=== PATIENT | male | born 1940 | race Caucasian/White ===

== ENCOUNTER 2016-10-13 23:13 | Inpatient (IN) | payer OTHER ==
[~2016-10-13] VITALS: Ht 175.3 cm; Wt 86.2 kg
[~2016-10-13 23:13] MED LIST: ALLOPURINOL100 MG PO; ASPIR 8181 MG PO; ASPIR-TRIN325 MG PO; ASPIRIN EC325 M2; ASPIRIN EC325 MG PO; ATORVASTATIN CA40 MG PO; ATORVASTATIN CA80 M1 PO; CELEXA20 M1 PO; GABAPENTIN300 M2 PO; HYDRALAZINE HCL50 MG PO; LEVOTHYROXIN0.025 M1 PO; LISINOPRIL/HCTZ1 TAB PO; MAGNESIUM250 M1 PO; MASON NATURAL2000 IU PO; OXACILLIN2 G1 IV; PLAVIX75 M1 PO; RESTASIS 0.4 M0.4 ML OPH; SENNA SOFT15 MG PO; Senokot S PO; TEMOVATE TOP; VITAMIN B121000 MC2 PO
--- NOTE | 2016-10-14 15:33 | RADIOLOGY REPORT ---
EXAMINATION: XR PORTABLE CHEST CLINICAL INFORMATION: Pacemaker placement. COMPARISON: 10/12/2016 TECHNIQUE: Portable AP view of the chest was obtained. FINDINGS: There is a left chest wall dual-lead pacer with leads overlying the right atrium and right ventricle. The lungs are well expanded. Similar tenting of the right hemidiaphragm with linear basilar scarring. No pleural effusion. No pneumothorax. The cardiomediastinal silhouette is unchanged. IMPRESSION: Left chest wall pacer in place with leads overlying the right atrium and right ventricle. No pneumothorax. Unchanged appearance of the right lung base.
--- NOTE | 2016-10-14 15:44 | Admission Core Measures ---
Admission Meds I reviewed the following Meds: Current Medications Sig/Hina Start time Last Medication Dose Stop Time Status Admin Aspirin Buffered 325 MG DAILY 10/15 1000 UNVr (Ecotrin) Atorvastatin Calcium 80 MG 1700 10/14 1700 UNVr (Lipitor) Citalopram 20 MG DAILY 10/15 1000 UNVr Hydrobromide (Celexa) Clopidogrel Bisulfate 75 MG DAILY 10/15 1000 UNVr (Plavix) Gabapentin 300 MG .[NIGHTLY] 10/14 1530 UNVr (Neurontin) Levothyroxine Sodium 0.025 MG DAILY AC 10/15 0700 UNVr (Synthroid) Senna/Docusate Sodium 1 TAB QPM 10/14 2200 UNVr (Senokot S) Acute Coronary Syndrome Inclusion Criteria ACS Diagnosis No Inpatient Core Measures LDL Reminder: If No, please order W/I first 24hr of stay Congestive Heart Failure Inclusion Criteria CHF Diagnosis No Cerebrovascular accident Inclusion Criteria CVA/TIA Diagnosis No Inpatient Core Measures Bedside Swallow Eval Reminder: If BSE failed, place ST order Antithrombotic Reminder: Order Antithrombotic Medication by end of day 2 Antithrombotic Reminder: Document Reason Antithrombotic Not ordered by end of day 2 AFIB/Flutter Reminder: If Present, add to problem list AFIB/Flutter Reminder: Order Anticoag Medication for pts with AFIB/Flutter Atherosclerosis Reminder: If Present, add to problem list LDL Reminder: If No, please order W/I first 24hr of stay PT Order Reminder: If No, please order Venous thromboembolism Inpatient Core Measures VTE Risk Factors: Age > 40, Surgery No [facility] VTE prophylaxis d/t No contraindications No VTE Pharm Prophylaxis d/t No contraindications Inclusion Criteria - Per Current guidelines, there needs to be overlap - treatment for the first 5 days of Warfarin therapy. - Parenteral Anticoagulation (IV or SC) needs to be - given along with Warfarin therapy. VTE Diagnosis No VTE Type NONE VTE Confirmed by (Test) NONE Problem List As ranked by this Provider includes Assessment & Plan 1. Bradycardia HOME MEDS Home Med List Aspirin E.c. (Ecotrin) 325 MG TAB 1 TAB PO DAILY HEART HEALTH (Reported) Atorvastatin Calcium 80 MG TABLET 80 MG PO 1700 hyperlipidemia CHOLECALCIFEROL (VITAMIN D3) (Vitamin D) 2,000 UNIT CAPSULE 1 CAP PO DAILY SUPPLEMENT (Reported) Citalopram Hydrobromide (Celexa) 20 MG TABLET 1 TAB PO DAILY ANXIETY / DEPRESSION (Reported) Clopidogrel Bisulfate (Plavix) 75 MG TABLET 75 MG PO DAILY TIA Cyanocobalamin (Vitamin B12) 1,000 MCG TAB 1 TAB PO DAILY SUPPLEMENT ( Reported) Cyclosporine (Restasis 0.4 Ml) 0.05 % DROPERETTE 1 GTT OPH BID EYE DRYNESS ( Reported) Gabapentin 300 MG CAPSULE 1 TAB PO NIGHTLY SLEEP (Reported) Levothyroxine Sodium 0.025 MG TAB 0.025 MG PO DAILY AC THYROID Magnesium 250 MG TABLET 250 MG PO DAILY SUPPLEMENT (Reported) Sennosides (Senna Soft) 15 MG TAB 1 TAB PO QPM PRN CONSTIPATION (Reported)
--- NOTE | 2016-10-14 16:44 | Operative Report ---
Operative/Inv Procedure Report Surgery Date: 10/14/16 Name of Procedure: MRI compatible dual-chamber pacemaker Pre-Operative Diagnosis: Symptomatic bradycardia with sick sinus syndrome Post-Operative Diagnosis: Same Estimated Blood Loss: less than 50ml Surgeon/Cap Inspector: ABIMAEL VIDAL,TAMIKO Rodriguez JR Anesthesia: laryngeal mask airway Operative/Procedure Note Note: After placement of monitoring lines and induction of a laryngeal mask airway general anesthetic the patient's left shoulder and upper chest were prepped and draped in a sterile fashion. Incision was made in the deltopectoral groove and carried down to prepectoralis fascia. The cephalic vein was encircled and was found to be a large caliber vessel. A small venotomy was made and a guidewire was passed into the right atrium under fluoroscopic guidance. A Medtronic ventricular lead model #[id number] was then advanced into the pulmonary outflow tract under fluoroscopic guidance. It was withdrawn into the right ventricular chamber and positioned at the apex. R waves were measured at 9.8 mV and the pacing threshold was at 0.3 V with a current of 0.2 mA and an impedance of 1151 ohms. The sheath dilator was then passed over the retained guidewire. A Medtronic preformed atrial lead model #[id number] was then positioned in the right atrial appendage under fluoroscopic guidance. P waves were measured at 2.1 mV. The pacing threshold was 0.4 V with a current of 0.6 mA and impedance of 507 ohms. The leads were tied to the cephalic vein which was occluded. There were then secured to the prepectoralis fascia with Ethibond sutures. A pacemaker pocket was fashioned over the prepectoralis fascia. The leads were then attached to a an MRI compatible Medtronic dual-chamber pacemaker. Hemostasis was achieved with electrocautery and with surgical clips. The pocket was flushed with antibiotic irrigation. The wound was closed in layers deep Vicryl suture followed by running followed by a running Vicryl subcuticular suture. With the dressing in place the pacemaker was interrogated and it was found that the atrial lead was not capturing appropriately. Fluoroscopy showed that the lead appeared to be in the same position but given the now high pacing threshold a decision was made to reopen the wound. The patient was reprepped and draped. The incision was opened and the atrial lead was then repositioned. The pacing threshold was now 0.4 V with a current of 0.7 mA and an impedance of 494 ohms. The ventricular lead was retested and this was working fine. The leads were reconnected to the generator and the wound was closed once again with Vicryl sutures. It was dressed with a dry sterile dressing. It was re-interrogated and found to be continuing functioning well. The patient tolerated the procedure well and was brought to the recovery room awake and extubated in stable condition. CC: Vandana BRUNSON MD
[2016-10-14 17:15] VITALS: BP 178/68
[2016-10-14 17:26] VITALS: BP 178/68
[2016-10-14 19:00] VITALS: BP 150/70
--- NOTE | 2016-10-14 20:00 | PN- Thoracic Surgery ---
Subjective Subjective: The patient was seen this evening postoperatively. He reports that his pain is under adequate control and is no complaints at the current time. He denies any chest pain or difficulty breathing. Objective Vital Signs and I&Os Vital Signs Date Time Temp Pulse Resp B/P Pulse O2 O2 Flow FiO2 Ox Delivery Rate / 1900 97.3 61 24 150/70 100 Room Air 03/ 1726 97.3 60 24 178/68 100 Room Air 03/ 1715 97.3 60 24 178/68 100 Room Air Postoperative chest x-ray showing pacemaker leads in good position with no pneumothorax. Postoperative EKG showing a paced sinus rhythm Physical Exam: Gen.: Alert and in obvious distress Skin: Warm and dry Chest: Left chest with surgical dressing that is clean, dry, and intact. Cardiac: S1-S2 regular Pulmonary: Bilateral breath sounds are equal with good exchange and fine expiratory wheeze Extremities: Left upper extremity in sling, gross motor and sensory are intact and there is a strong palpable radial pulse. Bilateral lower extremities are warm without calf tenderness. Assessment/Plan Assessment/Plan Assessment: 76-year-old male status post permanent pacemaker placement. Postoperatively patient is progressing as expected and his pain is under adequate control. Plan: Hep-Lock IV fluids advance diet as tolerated Continue to monitor on telemetry until the morning Keep the pressure dressing and left upper extremity in sling Resume home medications GI and DVT prophylaxis Possible discharge home tomorrow if doing okay. Core Measures/Miscellaneous Venous Thromboembolism VTE Risk Factors: Cancer/chemo/oth therapy, Surgery VTE Contraindications: No Contraindications VTE Diagnosis: No VTE Type: NONE VTE Confirmed by (Test): NONE Beta Earl Is Beta Ealr a Home Med? No Antibiotics Is Patient on Antibiotics? No
[2016-10-14 21:30] VITALS: BP 168/70
--- NOTE | 2016-10-14 22:15 | NUR ---
1700 LATE NURSING ENTRY: PATIENT RECEIVED FROM PACU, ALERT AND ORIENTED, TRANSFERED TO BED, TM IN PLACE READING HR 60, PACED, VS DOCUMENTED, PATIENT DENIES PAIN. LCW AND SHOULDER DRSG, DRY, INTACT AND CLEAN . ARM IN SLING. PATIENT ORIENTED TO ROOM AND 1 NORTH, CALL GUZMAN EXPLAINED AND GIVEN. DIETARY AT BED SIDE. WCTM.
--- NOTE | 2016-10-14 22:18 | NUR ---
2200 PATIENT DID NOT VOID SINCE ADMISSION TO FLOOR AT 1700. BLADDER SCANNED FOR 540 ML, PATIENT STATING "I DON'T FEEL LIKE I NEED TO PEE RIGHT NOW" URINAL PROVIDED AND PATIENT VOIDED 300 MC CLEAR DARK MARIO URINE. WCTM.
[2016-10-15 04:00] VITALS: BP 148/70
--- NOTE | 2016-10-15 07:43 | PN- Thoracic Surgery ---
Subjective Subjective: No complaints. Denies pain. Reports difficulty getting out of bed yesterday. Tolerating diet. No nausea. Denies shortness of breath. No chest pains. No dizziness. Objective Vital Signs and I&Os Vital Signs Date Time Temp Pulse Resp B/P Pulse O2 O2 Flow FiO2 Ox Delivery Rate 10/15 0400 60 148/70 03/ 0000 94 Room Air 10/14 2130 98.1 60 22 168/70 98 Room Air 10/14 1900 97.3 61 24 150/70 100 Room Air 10/14 1726 97.3 60 24 178/68 100 Room Air / 1715 97.3 60 24 178/68 100 Room Air Intake & Output 10/15 0800 10/15 0000 / 1600 10/14 0800 10/14 0000 10/13 1600 Intake Total 50 850 Output Total 300 300 Balance -250 550 Intake, IV 50 100 Intake, Oral 0 750 Number 0 Bowel Movements Output, Urine 300 300 Patient 190 lb Weight Assessment/Plan Assessment/Plan This 76-year-old male is POD#1 s/p permanent pacemaker placement for symptomatic bradycardia with sick sinus syndrome tolerating diet. off iv fluids f/u labs post-op cxr and ekg done / reviewed percocet prn pain hep sc - dvt ppx clara-operative ancef complete PT eval to assess safety for home f/u and likely d/c home today Core Measures/Miscellaneous Venous Thromboembolism VTE Risk Factors: Cancer/chemo/oth therapy, Surgery VTE Contraindications: No Contraindications VTE Diagnosis: No VTE Type: NONE VTE Confirmed by (Test): NONE Beta Earl Is Beta Earl a Home Med? No Antibiotics Is Patient on Antibiotics? No
--- NOTE | 2016-10-15 07:49 | RADIOLOGY REPORT ---
EXAMINATION: FL PACEMAKER INSERTION IN OPERATING ROOM CLINICAL INFORMATION: Pacemaker insertion. COMPARISON: None. TECHNIQUE: Fluoroscopy was provided in the operating room. 4 spot views were obtained of the lower mediastinum. FINDINGS: The spot films demonstrate right atrial and right ventricular leads. FLUOROSCOPY TIME: 7 minutes. DOSE: 83.2 mGy; 2.7 mGym2. IMPRESSION: Fluoroscopy provided for pacemaker insertion.
--- NOTE | 2016-10-15 07:49 | Patient Discharge Instructions ---
Discharge Instructions General Discharge Information You were seen/treated for: Symptomatic bradycardia with sick sinus syndrome You had these procedures: Surgery Date: 10/14/16 Name of Procedure: MRI compatible dual-chamber pacemaker Watch for these problems: fever>101.3, increased pain, shortness of breath, chest pain, dizziness Special Instructions: sling to limit movement of left arm Diet Continue normal diet: Yes Recommended Diet: Heart Healthy Activity Full Activity/No Limits: No Activity Self Limited: Yes Pounds, do NOT lift more than: 10 Acute Coronary Syndrome Inclusion Criteria At DC or during hospital stay patient has or had the following: ACS DIAGNOSIS No Discharge Core Measures Meds if any: Prescribed or Continued at Discharge Meds if any: NOT Prescribed or Continued at Discharge Congestive Heart Failure Inclusion Criteria At DC or during hospital stay patient has or had the following: CHF DIAGNOSIS No Discharge Core Measures Meds if any: Prescribed or Continued at Discharge Meds if any: NOT Prescribed or Continued at Discharge Cerebrovascular accident Inclusion Criteria At DC or during hospital stay patient has or had the following: CVA/TIA Diagnosis No Discharge Core Measures Meds if any: Prescribed or Continued at Discharge Meds if any: NOT Prescribed or Continued at Discharge Venous thromboembolism Inclusion Criteria VTE Diagnosis No VTE Type NONE VTE Confirmed by (Test) NONE Discharge Core Measures - Per Current guidelines, there needs to be overlap - treatment for the first 5 days of Warfarin therapy. - If discharged on Warfarin prior to 5 days of - overlap therapy, the patient will need to be - assessed for post discharge needs including - *Post discharge parental anticoagulation - *Warfarin and/or parental anticoagulation education - *Follow up date to check INR post discharge At least 5 days overlap therapy as Inpatient No Meds if any: Prescribed or Continued at Discharge Note: Overlap Therapy is Warfarin and Anticoagulant Meds if any: NOT Prescribed or Continued at Discharge
[2016-10-15 07:52] VITALS: BP 142/72
[2016-10-15 08:25] LABS: ABSOLUTE BASOPHIL COUNT 0 /CUMM (0.0-0.2); ABSOLUTE LYMPH COUNT 0.9 /CUMM (1.2-3.4)
[2016-10-15 09:00] LABS: ABSOLUTE EOSINOPHIL COUNT 0.3 /CUMM (0.0-0.7); ABSOLUTE MONOCYTE COUNT 0.6 /CUMM (0.10-0.60); BASOPHIL % 0.3 % (0.0-2.0); EOSINOPHIL % 4.3 % (0-5); GRANULOCYTE % 76.4 % (42.2-75.2); MEAN CORPUSCULAR HGB 33.4 PG (27.0-31.0); MEAN PLATELET VOLUME 8.4 FL (7.4-10.4); PLATELET COUNT 130 /CUMM (130-400); RBC DISTRIBUTION WIDTH 15.1 % (11.5-14.5); RED BLOOD CELL CT 3.04 /CUMM (4.70-6.10); WHITE BLOOD CELL COUNT 7.8 /CUMM (4.8-10.8)
[2016-10-15 09:03] LABS: HEMATOCRIT 29.8 % (42-52)
--- NOTE | 2016-10-15 10:32 | Cons- Cardiology ---
General Information and HPI Consulting Request Date of Consult: 10/15/16 Requested By: ABIMAEL VIDAL,TAMIKO Rodriguez JR Reason for Consult: Cardiac management post permanent pacemaker Source of Information: patient, old records Exam Limitations: no limitations History of Present Illness: The patient is a 76-year-old male who is well-known to me. The patient has a long medical history with multiple problems. He has been relatively stable recently but has complained of persistent fatigue, episodes of mental status changes have been noted, and one recently in the hospital, the patient had persistent sinus bradycardia on no medications. When seen recently by me in the office, the patient continued to have persistent episodes of bradycardia. His Holter monitor showed daytime heart rates as low as sinus bradycardia in the high 20s to low 30s. His average heart rate was also significantly low. In view of the patient's persistent fatigue and other symptoms he was recommended to have a permanent pacemaker implanted. The patient is now day one post dual- chamber permanent pacemaker inserted by Dr. Simms and is clinically stable. His pacemaker appears to be functioning normally. The patient feels much better with more energy and less fatigue. Allergies/Medications Allergies: Coded Allergies: NO KNOWN ALLERGIES (10/12/16) Home Med List: Aspirin E.c. (Ecotrin) 325 MG TAB 1 TAB PO DAILY HEART HEALTH (Reported) Atorvastatin Calcium 80 MG TABLET 80 MG PO 1700 hyperlipidemia CHOLECALCIFEROL (VITAMIN D3) (Vitamin D) 2,000 UNIT CAPSULE 1 CAP PO DAILY SUPPLEMENT (Reported) Citalopram Hydrobromide (Celexa) 20 MG TABLET 1 TAB PO DAILY ANXIETY / DEPRESSION (Reported) Clopidogrel Bisulfate (Plavix) 75 MG TABLET 75 MG PO DAILY TIA Cyanocobalamin (Vitamin B12) 1,000 MCG TAB 1 TAB PO DAILY SUPPLEMENT ( Reported) NPO Cyclosporine (Restasis 0.4 Ml) 0.05 % DROPERETTE 1 GTT OPH BID EYE DRYNESS ( Reported) Gabapentin 300 MG CAPSULE 1 TAB PO NIGHTLY SLEEP (Reported) Levothyroxine Sodium 0.025 MG TAB 0.025 MG PO DAILY AC THYROID Magnesium 250 MG TABLET 250 MG PO DAILY SUPPLEMENT (Reported) Sennosides (Senna Soft) 15 MG TAB 1 TAB PO QPM PRN CONSTIPATION (Reported) Current Medications: Current Medications Sig/Hina Start time Last Medication Dose Route Stop Time Status Admin Acetaminophen 650 MG Q6P PRN 10/14 1730 AC PO Aspirin Buffered 325 MG DAILY 10/15 1000 DC PO Aspirin Buffered 325 MG DAILY 10/15 1000 AC 10/15 PO 0947 Atorvastatin Calcium 80 MG 1700 10/15 1700 AC PO Atorvastatin Calcium 80 MG 1700 10/14 1700 DC PO Cefazolin Sodium 2 GM Q8H 10/14 2000 DC 10/15 N/A 1 UNIT IV 10/15 0429 0445 Citalopram 20 MG DAILY 10/15 1000 DC Hydrobromide PO Citalopram 20 MG DAILY 10/15 1000 AC 10/15 Hydrobromide PO 0947 Clopidogrel Bisulfate 75 MG DAILY 10/15 1000 DC PO Clopidogrel Bisulfate 75 MG DAILY 10/15 1000 AC 10/15 PO 0947 Dextrose/Sodium 1,000 ML .[id number] 10/14 1730 DC Chloride IV Docusate Sodium 100 MG DAILY NEEDED PRN 10/14 1730 AC PO Fentanyl Citrate 100 MCG .STK-MED ONE 10/14 1149 DC IM 10/14 1150 Gabapentin 300 MG QPM 10/14 2200 DC PO Gabapentin 300 MG QPM 10/14 2200 AC 10/14 PO 2108 Heparin Sodium 5,000 UNIT Q8 10/15 0745 AC 10/15 (Porcine) SC 0947 Labetalol HCl 100 MG .STK-MED ONE 10/14 1548 DC IV 10/14 1549 Levothyroxine Sodium 0.025 MG DAILY AC 10/15 0700 DC PO Levothyroxine Sodium 0.025 MG DAILY AC 10/15 0700 AC 10/15 PO 0633 Midazolam HCl 2 MG .STK-MED ONE 10/14 1149 DC IM 10/14 1150 Morphine Sulfate 2 MG Q2P PRN 10/14 1730 AC IV Oxycodone/ 1 TAB Q4P PRN 10/14 1730 AC Acetaminophen PO Oxycodone/ 2 TAB Q4P PRN 10/14 1730 AC Acetaminophen PO Senna/Docusate Sodium 1 TAB QPM 10/14 2200 DC PO Senna/Docusate Sodium 1 TAB QPM 10/14 2200 AC PO Past History Medical History Blood Transfusion Hx: Yes Neurological: TIA EENT: cataracts Cardiovascular: aortic stenosis, hypertension, rheumatic fever Respiratory: PARTIAL RIGHT LOBECTOMY Gastrointestinal: NONE Hepatic: NONE Renal: NONE Musculoskeletal: gout Psychiatric: NONE Endocrine: hypothyroidism, vitamin B12 deficiency Blood Disorders: anemia Cancer(s): lung cancer (metastatic) TRANSIT MAN/Reproductive: NONE Other Medical Hx: psoriasis Surgical History Surgical History: laminectomy (L3 to L5 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 BROTHER (family history of multiple cancers-lung, stomach, pancreas in parents andsiblings.). Psychosocial History Where Do You Live? Home Services at Home: None Smoking Status: Never Smoked ECHO Results (as available) Report: CONCLUSIONS 1. There were no vegetative lesions detected on this examination. 2. Aortic sclerosis is present with minimal to mild aortic insufficiency. 3. Mitral leaflet thickening is present with mild to moderate mitral insufficiency and mild left atrial dilatation. 4. The left atrial appendage appears normal with no evidence of thrombus. 5. The pulmonary venous anatomy is normal bilaterally with normal doppler flow profiles. 6. The left ventricular chamber size and systolic function appear normal. 7. Mild dilatation of the right heart chambers is noted. Mild to moderate tricuspid insufficiency is present with an estimated RV systolic pressure of at least 50 mmHg. 8. A PFO is present with a small left to right shunt noted in the mid atrial septum. Agitated contrast studies were not performed due to the lack of adequate IV access ( the patient only had a PICC line). 9. Grade I atheromatous plaque is present in the distal aortic arch. Exam & Diagnostic Data Vital Signs and I&O Vital Signs Date Time Temp Pulse Resp B/P Pulse O2 O2 Flow FiO2 Ox Delivery Rate 10/15 0752 97.7 62 18 142/72 96 Room Air 10/15 0400 60 148/70 10/15 0000 94 Room Air 10/14 2130 98.1 60 22 168/70 98 Room Air 10/14 1900 97.3 61 24 150/70 100 Room Air 10/14 1726 97.3 60 24 178/68 100 Room Air 10/14 1715 97.3 60 24 178/68 100 Room Air Intake & Output 10/15 1600 10/15 0800 10/15 0000 10/14 1600 10/14 0800 10/14 0000 Intake Total 50 850 Output Total 300 300 Balance -250 550 Intake, IV 50 100 Intake, Oral 0 750 Number 0 Bowel Movements Output, Urine 300 300 Patient 190 lb Weight Physical Exam: WD, WN, WM; NAD; VSS; Alert and oriented HEENT: normal Nech: normal Chest: normal; clear bilaterally; surgical site clean and dry. Heart: S1; S2; 2/6 AVNI Abdomen: normal Ext: trace ankle edema Vascular: normal. Labs/Maximo Results: Laboratory Tests 10/15 0650 Chemistry Sodium (137 - 145 mmol/L) 139 Potassium (3.5 - 5.1 mmol/L) 4.2 Chloride (98 - 107 mmol/L) 107 Carbon Dioxide (22 - 30 mmol/L) 22 Anion Gap (5 - 16) 10 BUN (9 - 20 mg/dL) 16 Creatinine (0.7 - 1.2 mg/dL) 1.2 Estimated GFR (>60 ml/min) 59 L BUN/Creatinine Ratio (7 - 25 %) 13.3 Hematology CBC w Diff NO MAN DIFF REQ WBC (4.8 - 10.8 /CUMM) 7.8 RBC (4.70 - 6.10 /CUMM) 3.04 L Hgb (14.0 - 18.0 G/DL) 10.1 L Hct (42 - 52 %) 29.8 L MCV (80.0 - 94.0 FL) 98.0 H MCH (27.0 - 31.0 PG) 33.4 H RDW (11.5 - 14.5 %) 15.1 H Plt Count (130 - 400 /CUMM) 130 MPV (7.4 - 10.4 FL) 8.4 Gran % (42.2 - 75.2 %) 76.4 H Lymphocytes % (20.5 - 51.1 %) 11.5 L Monocytes % (1.7 - 9.3 %) 7.5 Eosinophils % (0 - 5 %) 4.3 Basophils % (0.0 - 2.0 %) 0.3 Absolute Granulocytes (1.4 - 6.5 /CUMM) 6.0 Absolute Lymphocytes (1.2 - 3.4 /CUMM) 0.9 L Absolute Monocytes (0.10 - 0.60 /CUMM) 0.6 Absolute Eosinophils (0.0 - 0.7 /CUMM) 0.3 Absolute Basophils (0.0 - 0.2 /CUMM) 0 PUBS MCHC (33.0 - 37.0 G/DL) 34.0 Diagnostic Data EKG Results atrial paced CXR Results FINDINGS: There is a left chest wall dual-lead pacer with leads overlying the right atrium and right ventricle. The lungs are well expanded. Similar tenting of the right hemidiaphragm with linear basilar scarring. No pleural effusion. No pneumothorax. The cardiomediastinal silhouette is unchanged. IMPRESSION: Left chest wall pacer in place with leads overlying the right atrium and right ventricle. No pneumothorax. Unchanged appearance of the right lung Assessment/Plan Assessment/Plan Assessment: 1. Persistent sinus bradycardia, symptomatic, now status post permanent pacemaker 2. History of hypertension 3. Aortic stenosis 4. History of lung cancer, status post lobectomy. Recommendations: -Out of bed as tolerated -Continue regular medications -Discharge planning as per cardiothoracic surgical service.-The patient will follow-up with me in the office in 2-4 weeks Consult Acknowledgment - Thank you for your consult request.
[2016-10-15] MEDS ORDERED: TYLENOL325 M1 PO (12:15)
--- NOTE | 2016-10-29 13:51 | Surgical Discharge Summary ---
Visit Information Visit Dates Admission Date: 10/14/16 Discharge Date: 10/15/16 History of Present Illness Chief Complaint: Patient is admitted for placement of a permanent pacemaker for symptomatic bradycardia. Holter monitor is shown significant pauses and bradycardia. Medical History Blood Transfusion Hx: Yes Neurological: TIA EENT: cataracts Cardiovascular: aortic stenosis, hypertension, rheumatic fever Respiratory: PARTIAL RIGHT LOBECTOMY Gastrointestinal: NONE Hepatic: NONE Renal: NONE Musculoskeletal: gout Psychiatric: NONE Endocrine: hypothyroidism, vitamin B12 deficiency Blood Disorders: anemia Cancer(s): lung cancer (metastatic) DRAFTING LAYOUT MAN/Reproductive: NONE Other Medical Hx: psoriasis History of MRSA: No History of VRE: No History of CDIFF: No Isolation History: Standard Pneumonia Vaccine: 07/15/14 Influenza Vaccine: 04/23/16 Surgical History Pertinent Surgical History: 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 BROTHER (family history of multiple cancers-lung, stomach, pancreas in parents andsiblings.). Psychosocial History Where Do You Live? Home Who Do You Live With? Patient/Self Services at Home: None What is Your Primary Language? Jamaican Review of Systems: Occasional presyncope and general lack of energy Hospital Course Course Attending Physician: ABIMAEL VIDAL,TAMIKO Rodriguez JR Primary Care Physician: KEMAR OROSCO MD Hospital Course: Patient was admitted and underwent placement of permanent pacemaker. It was a dual-chamber MRI compatible device. He was stable overnight on telemetry. On the morning of the first postoperative day his pacemaker was interrogated and was functioning well. He was discharged at that point. Allergies: Coded Allergies: NO KNOWN ALLERGIES (10/12/16) Disposition Summary Disposition Principal Diagnosis: Symptomatic bradycardia Additional Diagnosis: None Discharge Disposition: home or self care Discharge Instructions General Discharge Information Code Status: Full Code Patient's Diet: As tolerated usual Patient's Activity: No lifting with the left arm otherwise normal Follow-Up Instructions/Appts: Follow-up in 2 weeks in the office with pacemaker interrogation Medications at Discharge Discharge Medications: Continue taking these medications: Magnesium (Magnesium) 250 MG TABLET 250 Milligram ORAL DAILY CHOLECALCIFEROL (VITAMIN D3) (Vitamin D) 2,000 UNIT CAPSULE 1 Capsule ORAL DAILY Sennosides (Senna Soft) 15 MG TAB 1 Tablet ORAL Every night as needed for CONSTIPATION Cyclosporine (Restasis 0.4 Ml) 0.05 % DROPERETTE 1 Drop In the eye TWICE DAILY Qty = 60 Cyanocobalamin (Vitamin B12) 1,000 MCG TAB 1 Tablet ORAL DAILY Instructions: NPO Levothyroxine Sodium (Levothyroxine Sodium) 0.025 MG TAB 0.025 Milligram ORAL DAILY BEFORE BREAKFAST Qty = 30 Comments: Last Taken:07/29/14 Time:1600 Aspirin E.c. (Ecotrin) 325 MG TAB 1 Tablet ORAL DAILY Clopidogrel Bisulfate (Plavix) 75 MG TABLET 75 Milligram ORAL DAILY Days = 30 Comments: Last Taken: 10/15/16 Time: 9 AM Atorvastatin Calcium (Atorvastatin Calcium) 80 MG TABLET 80 Milligram ORAL 5 PM Days = 30 Comments: NOT GIVEN IN HOSPITAL Citalopram Hydrobromide (Celexa) 20 MG TABLET 1 Tablet ORAL DAILY Comments: Last Taken: 10/15/16 Time: 10 AM Gabapentin (Gabapentin) 300 MG CAPSULE 1 Tablet ORAL NIGHTLY Comments: Last Taken: 10/14/16 Time: 9 PM Start taking the following new medications: Acetaminophen (Tylenol) 325 MG TABLET 650 Milligram ORAL EVERY SIX HOURS NEEDED as needed for PAIN 1-3 TEMP GREATER THAN 101 Days = 10 No Refills Instructions: available over the counter. take as directed, as needed for pain. Comments: NOT GIVEN IN HOSPITAL
== END 2016-10-15 13:27 | DRG 244 ==
LOC: ENRESERVDT → ENRESERVTM → UNDOADMIN 23:13 → SDA 23:13 → EDPENDDISTM 10-14 00:01 → ENPENDDIS 10-14 00:01 → SDA 10-14 00:01 → 1NO 10-14 00:01
PROVIDERS: Nurse Practitioner; ADMIT Thoracic Surgery (Cardiothoracic Vascular Surgery)
PROC: 02H63JZ Insertion of Pacemaker Lead into Right Atrium, Percutaneous Approach (ICD-10-PCS; principal; 2016-10-14)
PROC: 02HK3JZ Insertion of Pacemaker Lead into Right Ventricle, Percutaneous Approach (ICD-10-PCS; principal; 2016-10-14)
PROC: 0JH606Z Insertion of Pacemaker, Dual Chamber into Chest Subcutaneous Tissue and Fascia, Open Approach (ICD-10-PCS; principal; 2016-10-14)
DX: I49.5 Sick sinus syndrome (principal); I35.0 Nonrheumatic aortic (valve) stenosis; I10 Essential (primary) hypertension; Z86.73 Personal history of transient ischemic attack (TIA), and cerebral infarction without residual deficits; E03.9 Hypothyroidism, unspecified; Z85.118 Personal history of other malignant neoplasm of bronchus and lung; R91.8 Other nonspecific abnormal finding of lung field; Z87.891 Personal history of nicotine dependence
CPT/HCPCS: 1NSP; SDA; 82436; 93005; 93010; 97116-GO; 97162-GP; C1785; C1898; J0690; J1644; J7042